=== PATIENT | female | born 1970 | race Caucasian/White ===

== ENCOUNTER 2018-12-24 08:06 | Inpatient (IN) | payer BC ==
[~2018-12-24] VITALS: Ht 172.7 cm; Wt 100.0 kg
[~2018-12-24 08:06] MED LIST: FOLI0.4T2 PO; GABA-530 PO; HYDR-4383 PO; LACT1CAP26 PO; LINE600T12 PO; MULT1TAB74 PO; NICO-687 TD; THIA100T66 PO
[2018-12-24] MEDS ORDERED: morphine 4 MG/ML inj SYRINge IV ONE (08:20)
[2018-12-24] MEDS ORDERED: ondansetron/PF 4mg/2ml inj IV ONE (08:20)
[2018-12-24] MEDS ORDERED: normal saline 1000ML IV soln IVB ONE ×2 (08:20→09:50)
[2018-12-24 09:23] LABS: BASOPHILS # (AUTO) 0.1 X10'3 (0-0.2); BASOPHILS % (AUTO) 0.7 % (0-1); EOSINOPHILS % (AUTO) 0.4 % (0-6); HEMATOCRIT 35.6 % (35.0-45.0); HEMOGLOBIN 11.8 g/dl (12.0-16.0); LYMPHOCYTES # (AUTO) 0.6 X10'3 (1.1-4.8); LYMPHOCYTES % (AUTO) 5.9 % (21-51); MEAN CORPUSCULAR HEMOGLOBIN 27.6 PG (27.0-31.0); MEAN CORPUSCULAR HGB CONC 33.1 g/dL (33.0-36.5); MEAN CORPUSCULAR VOLUME 83.5 FL (78-98); MEAN PLATELET VOLUME 8.2 FL (7.4-10.4); MONOCYTES # (AUTO) 0.2 X10'3 (0-0.9); MONOCYTES % (AUTO) 2.3 % (2-12); NEUTROPHILS # (AUTO) 9.6 X10'3 (1.8-7.7); NEUTROPHILS % (AUTO) 90.7 % (42-75); PLATELET COUNT 338 X10'3 (140-440); RED BLOOD COUNT 4.26 X10'6 (4.20-5.60); RED CELL DISTRIBUTION WIDTH 16.5 % (11.5-14.5); WHITE BLOOD COUNT 10.6 X10'3 (4.5-11.0)
[2018-12-24 09:36] LABS: CLARITY,URINE CLEAR (Clear); COLOR,URINE STRAW (Yellow); GLUCOSE, URINE NEGATIVE (Neg); KETONES,URINE NEGATIVE (Neg); LEUKOCYTE ESTERASE ,URINE TRACE (Neg); NITRITES, URINE NEGATIVE (Neg); OCCULT BLOOD,URINE NEGATIVE (Neg); PROTEIN,URINE NEGATIVE (Neg); UROBILINOGEN,URINE 0.2 E.U/dL (0.2-1.0)
[2018-12-24 09:36] LABS: ALANINE AMINOTRANSFERASE 18 U/L (12-78); ALBUMIN 2.9 G/DL (3.4-5.0); ALBUMIN/GLOBULIN RATIO 0.6 (1.1-1.5); ALKALINE PHOSPHATASE 142 IU/L (46-116); ANION GAP 10 (8-16); ASPARTATE AMINO TRANSFERASE 16 U/L (10-37); BILIRUBIN,TOTAL 0.3 MG/DL (0.1-1.0); BLOOD UREA NITROGEN 19 MG/DL (7-18); BUN/CREATININE RATIO 7.8 (6.6-38.0); CALCIUM 9.2 MG/DL (8.5-10.1); CHLORIDE 108 MMOL/L (99-107); CREATININE 2.43 MG/DL (0.40-0.90); GLUCOSE 127 MG/DL (70-104); POTASSIUM 5.1 MMOL/L (3.5-5.1); SODIUM 144 MMOL/L (135-145); TOTAL CARBON DIOXIDE 26.5 MMOL/L (24-32); TOTAL PROTEIN 7.4 G/DL (6.4-8.2); eGFR 21 ML/MIN
[2018-12-24 09:37] LABS: UA COLLECTION TYPE CLN CATCH MIDSTREAM
[2018-12-24 09:40] LABS: BACTERIA,URINE FEW /HPF (Neg); RBC,URINE NONE SEEN /HPF (0-2); SQUAMOUS EPITHELIAL CELL,UR FEW /LPF (FEW)
[2018-12-24 09:41] LABS: MUCUS STRANDS NONE SEEN /LPF (Neg); WBC CLUMPS,URINE FEW /HPF (NEGATIVE)
[2018-12-24] MEDS ORDERED: CELE200C PO (10:09)
[2018-12-24] MEDS ORDERED: potassium Cl 20 mEq SR tablet PO PRN ×2 (10:30)
[2018-12-24] MEDS ORDERED: magnesium hydroxide 30ml (MOM) UD suspension PO PRN (10:30)
[2018-12-24] MEDS ORDERED: magnesium Cl slow-release 64mg tablet PO PRN (10:30)
[2018-12-24] MEDS ORDERED: potassium CL 10mEq/100ml bag 100 ML IV PRN ×2 (10:30)
[2018-12-24] MEDS ORDERED: magnesium 2GM in 50ml NS 50 ML IV PRN (10:30)
[2018-12-24] MEDS ORDERED: acetaminophen 325mg tablet PO PRN ×2 (10:30)
[2018-12-24] MEDS ORDERED: HYDROcodone/acetaminophen 5mg/325mg tablet PO PRN (10:30)
[2018-12-24] MEDS ORDERED: magnesium 4gm in 100ml NS 100 ML IV PRN (10:30)
[2018-12-24] MEDS ORDERED: mag hydrox/Alum hydrox/simeth 30ml oral suspension PO PRN (10:30)
--- NOTE | 2018-12-24 11:20 | NUR ---
Report received from ED RNLeana.
[2018-12-24] MEDS: linezolid 600mg/300ml PREMIX 300 ML IV SCH ×2 (11:37→20:22)
[2018-12-24] MEDS: ondansetron/PF 4mg/2ml inj IV PRN ×2 (11:40→23:29)
[2018-12-24] MEDS: metoclopramide 5 mg/ml inj IV PRN ×2 (11:40→19:02)
[2018-12-24] MEDS: HYDROcodone/acetaminophen 10/325mg tab PO PRN ×2 (11:40→17:01)
[2018-12-24 12:05] VITALS: BP 169/98
[2018-12-24] MEDS: K and/or MAG REPLACEMENT MC SCH (13:00)
[2018-12-24] MEDS: normal saline 1000ml 1,000 ML IV SCH ×2 (13:00→20:27)
[2018-12-24] MEDS: HYDROmorphone 1 mg/ml syringe IV PRN ×2 (15:35→23:29)
[2018-12-24] MEDS: proCHLORperazine 10 MG/2 ml inj IV PRN (15:46)
[2018-12-24] MEDS: gabapentin 100mg capsule PO SCH (15:55)
--- NOTE | 2018-12-24 16:00 | NUR ---
Pt off the floor to CT scan
--- NOTE | 2018-12-24 16:35 | NUR ---
Pt returned to room 345A from CT
--- NOTE | 2018-12-24 18:25 | NUR ---
Problems reprioritized. Patient report given, questions answered & plan of care reviewed with JULIA Flores.
--- NOTE | 2018-12-24 18:30 | NUR ---
Patient in room PAT 345. I have received report from HALEIGH and had the opportunity to ask questions and assume patient care.
[2018-12-24 19:00] VITALS: BP 144/83
[2018-12-24] MEDS: heparin, porcine 5000 units/ml vial SQ SCH (20:23)
[2018-12-24] MEDS ORDERED: temazepam 15mg capsule PO PRN (21:00)
[2018-12-24 23:00] VITALS: BP 165/104
[2018-12-25] MEDS: normal saline 1000ml 1,000 ML IV SCH ×4 (01:51→21:53)
[2018-12-25] MEDS: HYDROcodone/acetaminophen 10/325mg tab PO PRN ×2 (02:08→08:49)
[2018-12-25 05:02] LABS: BASOPHILS # (AUTO) 0.1 X10'3 (0-0.2); BASOPHILS % (AUTO) 0.6 % (0-1); EOSINOPHILS # (AUTO) 0.3 X10'3 (0-0.9); EOSINOPHILS % (AUTO) 3.8 % (0-6); HEMATOCRIT 29.3 % (35.0-45.0); HEMOGLOBIN 9.6 g/dl (12.0-16.0); LYMPHOCYTES # (AUTO) 1.1 X10'3 (1.1-4.8); LYMPHOCYTES % (AUTO) 12.5 % (21-51); MEAN CORPUSCULAR HEMOGLOBIN 27.8 PG (27.0-31.0); MEAN CORPUSCULAR HGB CONC 32.9 g/dL (33.0-36.5); MEAN CORPUSCULAR VOLUME 84.5 FL (78-98); MEAN PLATELET VOLUME 7.9 FL (7.4-10.4); MONOCYTES # (AUTO) 0.7 X10'3 (0-0.9); MONOCYTES % (AUTO) 7.2 % (2-12); NEUTROPHILS # (AUTO) 6.9 X10'3 (1.8-7.7); NEUTROPHILS % (AUTO) 75.9 % (42-75); PLATELET COUNT 244 X10'3 (140-440); RED BLOOD COUNT 3.46 X10'6 (4.20-5.60); RED CELL DISTRIBUTION WIDTH 16.4 % (11.5-14.5); WHITE BLOOD COUNT 9.1 X10'3 (4.5-11.0)
[2018-12-25 05:06] LABS: ALANINE AMINOTRANSFERASE 19 U/L (12-78); ALBUMIN 2.3 G/DL (3.4-5.0); ALBUMIN/GLOBULIN RATIO 0.7 (1.1-1.5); ALKALINE PHOSPHATASE 111 IU/L (46-116); ANION GAP 9 (8-16); ASPARTATE AMINO TRANSFERASE 18 U/L (10-37); BILIRUBIN,TOTAL 0.4 MG/DL (0.1-1.0); BLOOD UREA NITROGEN 15 MG/DL (7-18); BUN/CREATININE RATIO 7.5 (6.6-38.0); CALCIUM 8.4 MG/DL (8.5-10.1); CHLORIDE 108 MMOL/L (99-107); GLUCOSE 92 MG/DL (70-104); MAGNESIUM 1.7 MG/DL (1.5-2.4); POTASSIUM 4.5 MMOL/L (3.5-5.1); SODIUM 141 MMOL/L (135-145); TOTAL CARBON DIOXIDE 24.4 MMOL/L (24-32); TOTAL PROTEIN 5.7 G/DL (6.4-8.2); eGFR 27 ML/MIN
--- NOTE | 2018-12-25 06:05 | NUR ---
Patient in room PAT 345. I have received report from JULIA Thacker and had the opportunity to ask questions and assume patient care.
--- NOTE | 2018-12-25 06:28 | NUR ---
Problems reprioritized. Patient report given, questions answered & plan of care reviewed with URBAN.
[2018-12-25 07:20] VITALS: BP 152/96
[2018-12-25] MEDS: heparin, porcine 5000 units/ml vial SQ SCH ×2 (08:00→20:18)
[2018-12-25] MEDS: gabapentin 100mg capsule PO SCH ×4 (08:00→23:45)
[2018-12-25] MEDS: linezolid 600mg/300ml PREMIX 300 ML IV SCH (08:00)
[2018-12-25] MEDS: K and/or MAG REPLACEMENT MC SCH (08:00)
[2018-12-25] MEDS: ondansetron/PF 4mg/2ml inj IV PRN (11:12)
[2018-12-25 11:24] VITALS: BP 133/86
[2018-12-25] MEDS: HYDROmorphone 1 mg/ml syringe IV PRN (13:05)
--- NOTE | 2018-12-25 14:12 | NUR ---
zyvox trigger: Pt recent prior admit and received zyvox ed by JOHN at that time. Addendum: 12/25/18 at [address] Amended: Links added.
[2018-12-25] MEDS: proCHLORperazine 10 MG/2 ml inj IV PRN (14:37)
[2018-12-25] MEDS: LORazepam 1 MG tablet PO PRN (17:28)
--- NOTE | 2018-12-25 18:05 | NUR ---
Problems reprioritized. Patient report given, questions answered & plan of care reviewed with JULIA Barker. Addendum: 12/25/18 at 1834 by Ana Pham RN 1814: Report given to JULIA Osullivan not JULIA Barker.
[2018-12-25 19:00] VITALS: BP 145/88
[2018-12-25] MEDS ORDERED: linezolid 600mg tablet PO SCH (20:00)
[2018-12-25] MEDS: lactobacillus rhamnosus 10,000 MMU CELLS/CAPSULE PO SCH (20:18)
[2018-12-25] MEDS ORDERED: HYDROmorphone inj. 0.5 MG/0.5 ML DISP.SYRIN ONE (20:26)
[2018-12-26] VITALS: BP 148/90
[2018-12-26] MEDS: ondansetron/PF 4mg/2ml inj IV PRN (01:55)
[2018-12-26 04:44] LABS: BASOPHILS % (AUTO) 0.8 % (0-1); EOSINOPHILS # (AUTO) 0.3 X10'3 (0-0.9); EOSINOPHILS % (AUTO) 4.5 % (0-6); HEMATOCRIT 27.8 % (35.0-45.0); HEMOGLOBIN 9.3 g/dl (12.0-16.0); LYMPHOCYTES % (AUTO) 16.8 % (21-51); MEAN CORPUSCULAR HGB CONC 33.2 g/dL (33.0-36.5); MEAN CORPUSCULAR VOLUME 84.1 FL (78-98); MEAN PLATELET VOLUME 7.8 FL (7.4-10.4); MONOCYTES # (AUTO) 0.5 X10'3 (0-0.9); MONOCYTES % (AUTO) 8.1 % (2-12); NEUTROPHILS # (AUTO) 4.3 X10'3 (1.8-7.7); NEUTROPHILS % (AUTO) 69.8 % (42-75); PLATELET COUNT 189 X10'3 (140-440); RED BLOOD COUNT 3.31 X10'6 (4.20-5.60); RED CELL DISTRIBUTION WIDTH 16.2 % (11.5-14.5); WHITE BLOOD COUNT 6.2 X10'3 (4.5-11.0)
[2018-12-26 05:02] LABS: ALANINE AMINOTRANSFERASE 22 U/L (12-78); ALBUMIN 2.4 G/DL (3.4-5.0); ALBUMIN/GLOBULIN RATIO 0.7 (1.1-1.5); ALKALINE PHOSPHATASE 114 IU/L (46-116); ANION GAP 8 (8-16); ASPARTATE AMINO TRANSFERASE 24 U/L (10-37); BILIRUBIN,TOTAL 0.3 MG/DL (0.1-1.0); BLOOD UREA NITROGEN 14 MG/DL (7-18); BUN/CREATININE RATIO 7.7 (6.6-38.0); CALCIUM 8.3 MG/DL (8.5-10.1); CHLORIDE 110 MMOL/L (99-107); CREATININE 1.83 MG/DL (0.40-0.90); GLUCOSE 82 MG/DL (70-104); MAGNESIUM 1.6 MG/DL (1.5-2.4); POTASSIUM 4.1 MMOL/L (3.5-5.1); SODIUM 143 MMOL/L (135-145); TOTAL CARBON DIOXIDE 25.3 MMOL/L (24-32); TOTAL PROTEIN 5.8 G/DL (6.4-8.2); eGFR 30 ML/MIN
[2018-12-26 06:00] VITALS: BP 143/81
--- NOTE | 2018-12-26 06:42 | NUR ---
Problems reprioritized. Patient report given, questions answered & plan of care reviewed with DESEAN. Addendum: 12/26/18 at 0643 by Nader Ghosh RN Amended: Links added.
[2018-12-26] MEDS ORDERED: HYDROmorphone inj. 0.5 MG/0.5 ML DISP.SYRIN ONE (06:59)
[2018-12-26] MEDS: gabapentin 100mg capsule PO SCH ×3 (07:09→23:41)
[2018-12-26] MEDS: proCHLORperazine 10 MG/2 ml inj IV PRN ×3 (07:09→21:00)
[2018-12-26] MEDS: lactobacillus rhamnosus 10,000 MMU CELLS/CAPSULE PO SCH ×2 (07:09→21:22)
[2018-12-26] MEDS: heparin, porcine 5000 units/ml vial SQ SCH ×2 (07:10→21:23)
[2018-12-26] MEDS: K and/or MAG REPLACEMENT MC SCH (07:38)
[2018-12-26 11:00] VITALS: BP 126/81
[2018-12-26] MEDS: LORazepam 1 MG tablet PO PRN ×2 (11:44→21:22)
[2018-12-26] MEDS: normal saline 1000ml 1,000 ML IV SCH ×2 (12:27→22:27)
[2018-12-26] MEDS: nystatin 15 GM powder TP SCH ×2 (13:16→21:23)
--- NOTE | 2018-12-26 14:23 | NUR ---
Initial: Pt admit with LUCERO secondary to N/V, likely r/t reaction to Zyvox. N/V and LUCERO improving per MD notes. Pt recently admitted 12/07/18 and underwent a colectomy with sigmoid resection with primary anastomosis and takedown of colovaginal fistula. Pt was provided with low fiber education and low tyramine nutrition therapy education d/t use of Zyvox. RD contact information also provided at that visit. Pt currently on low fiber/soft diet with documented 75% PO intake likely meeting nutrient needs. [facility] 12/24. Will continue to follow. Recommendations: 1) Continue with low fiber/soft diet 2) Wt per rx Addendum: 12/26/18 at [address] Amended: Links added.
[2018-12-26] MEDS: HYDROmorphone 1 mg/ml syringe IV PRN (17:14)
--- NOTE | 2018-12-26 18:26 | NUR ---
Problems reprioritized. Patient report given, questions answered & plan of care reviewed with JULIA Martinez.
--- NOTE | 2018-12-26 18:27 | NUR ---
Patient in room PAT 345. I have received report from JULIA Brand and had the opportunity to ask questions and assume patient care.
[2018-12-26 20:00] VITALS: BP 153/95
[2018-12-26] MEDS ORDERED: [UNRECOGNIZED DRUG - OTHER] VG SCH (21:00)
[2018-12-27] VITALS: BP 143/74
[2018-12-27] MEDS: normal saline 1000ml 1,000 ML IV SCH (04:56)
[2018-12-27 04:58] LABS: BASOPHILS # (AUTO) 0.1 X10'3 (0-0.2); BASOPHILS % (AUTO) 0.9 % (0-1); EOSINOPHILS # (AUTO) 0.2 X10'3 (0-0.9); EOSINOPHILS % (AUTO) 3.3 % (0-6); HEMATOCRIT 27.5 % (35.0-45.0); HEMOGLOBIN 9.2 g/dl (12.0-16.0); LYMPHOCYTES % (AUTO) 14.7 % (21-51); MEAN CORPUSCULAR HEMOGLOBIN 28.1 PG (27.0-31.0); MEAN CORPUSCULAR HGB CONC 33.4 g/dL (33.0-36.5); MEAN CORPUSCULAR VOLUME 84.2 FL (78-98); MONOCYTES # (AUTO) 0.7 X10'3 (0-0.9); MONOCYTES % (AUTO) 10.6 % (2-12); NEUTROPHILS # (AUTO) 4.8 X10'3 (1.8-7.7); NEUTROPHILS % (AUTO) 70.5 % (42-75); PLATELET COUNT 162 X10'3 (140-440); RED BLOOD COUNT 3.26 X10'6 (4.20-5.60); RED CELL DISTRIBUTION WIDTH 16.3 % (11.5-14.5); WHITE BLOOD COUNT 6.7 X10'3 (4.5-11.0)
[2018-12-27 05:33] LABS: ALANINE AMINOTRANSFERASE 19 U/L (12-78); ALBUMIN 2.6 G/DL (3.4-5.0); ALBUMIN/GLOBULIN RATIO 0.8 (1.1-1.5); ALKALINE PHOSPHATASE 116 IU/L (46-116); ANION GAP 11 (8-16); ASPARTATE AMINO TRANSFERASE 19 U/L (10-37); BILIRUBIN,TOTAL 0.3 MG/DL (0.1-1.0); BLOOD UREA NITROGEN 13 MG/DL (7-18); BUN/CREATININE RATIO 8.2 (6.6-38.0); CALCIUM 8.6 MG/DL (8.5-10.1); CHLORIDE 110 MMOL/L (99-107); CREATININE 1.58 MG/DL (0.40-0.90); GLUCOSE 88 MG/DL (70-104); MAGNESIUM 1.6 MG/DL (1.5-2.4); SODIUM 146 MMOL/L (135-145); TOTAL CARBON DIOXIDE 25.1 MMOL/L (24-32); eGFR 35 ML/MIN
--- NOTE | 2018-12-27 06:07 | NUR ---
Problems reprioritized. Patient report given, questions answered & plan of care reviewed with JULIA Goyal.
[2018-12-27 07:00] VITALS: BP 161/106
[2018-12-27] MEDS: HYDROcodone/acetaminophen 10/325mg tab PO PRN (07:25)
[2018-12-27] MEDS: heparin, porcine 5000 units/ml vial SQ SCH (07:43)
[2018-12-27] MEDS: K and/or MAG REPLACEMENT MC SCH (07:43)
[2018-12-27] MEDS: lactobacillus rhamnosus 10,000 MMU CELLS/CAPSULE PO SCH (07:45)
[2018-12-27] MEDS: proCHLORperazine 10 MG/2 ml inj IV PRN (07:45)
[2018-12-27] MEDS: nystatin 15 GM powder TP SCH ×2 (07:45→13:00)
[2018-12-27] MEDS: gabapentin 100mg capsule PO SCH (07:45)
[2018-12-27 08:03] VITALS: BP 156/94
[2018-12-27 08:41] VITALS: BP 141/83
[2018-12-27 11:00] VITALS: BP 151/87
[2018-12-27] MEDS: LORazepam 1 MG tablet PO PRN (11:45)
[2018-12-27] MEDS ORDERED: LINE600T11 PO (12:39)
--- NOTE | 2018-12-27 14:25 | NUR ---
Pt. discharged in a stable condition. Aware to return to ER if any worsening symptoms. Aware to follow up to have jessica removed. Knows to case picker Zyvox at pharmacy. IV dc'd, pressure bandage applied, no s/sx bleeding noted. Wound care discussed for incision. Infection control discussed with good feedback. Potential ASE of Zyvox discussed with pt. Educational papers also provided. ID band removed. present to drive pt. Hospital staff member escorted pt. to her private vehicle with all of her belongings to go home.
== END 2018-12-27 14:27 | disposition home or self-care (01) | DRG 684 ==
LOC: ER 08:07 → SUR 3N 10:27 → INTOOBSV 12:02 → SUR 3N 12:02 → OBSVTOIN 12:02 → UNDOADMOB 12:02 → SUR 3N 13:55
PROVIDERS: ADMIT Family Medicine; ATTEND Family Medicine
DX: N17.9 Acute kidney failure, unspecified (principal); E78.5 Hyperlipidemia, unspecified; E86.0 Dehydration; F41.1 Generalized anxiety disorder; I10 Essential (primary) hypertension; J45.909 Unspecified asthma, uncomplicated; D25.9 Leiomyoma of uterus, unspecified; K57.90 Diverticulosis of intestine, part unspecified, without perforation or abscess without bleeding; F12.90 Cannabis use, unspecified, uncomplicated; F32.9 Major depressive disorder, single episode, unspecified; T36.8X5A Adverse effect of other systemic antibiotics, initial encounter; L40.50 Arthropathic psoriasis, unspecified; F17.200 Nicotine dependence, unspecified, uncomplicated; Z90.49 Acquired absence of other specified parts of digestive tract; Z87.11 Personal history of peptic ulcer disease; Z90.710 Acquired absence of both cervix and uterus; Z88.0 Allergy status to penicillin; Z88.2 Allergy status to sulfonamides; Z88.5 Allergy status to narcotic agent; Y92.89 Other specified places as the place of occurrence of the external cause
CPT/HCPCS: 36415; 74176; 80053; 81001; 83605; 83735; 84145; 85025; 87040; 87081; 87088; 93975; 96361; 96374; 96375; 99285; G0378; J0780; J1170; J1644; J2020; J2270; J2405; J2765; J7030

== ENCOUNTER 2019-07-02 10:24 | Emergency (ER) | payer BC ==
[~2019-07-02] VITALS: Ht 170.2 cm; Wt 90.0 kg
[~2019-07-02 10:24] MED LIST changes: +CELE200C PO; -FOLI0.4T2 PO; -HYDR-4383 PO; -LINE600T12 PO; -NICO-687 TD; -THIA100T66 PO
[2019-07-02] MEDS ORDERED: diphenhydrAMINE 25mg capsule PO ONE (12:10)
[2019-07-02] MEDS ORDERED: ondansetron 4mg rapidly disintigrating tab PO ONE (12:10)
[2019-07-02] MEDS ORDERED: HYDROcodone/acetaminophen 5mg/325mg tablet PO ONE (12:10)
[2019-07-02 12:35] LABS: BASOPHILS # (AUTO) 0.1 X10'3 (0-0.2); BASOPHILS % (AUTO) 1.1 % (0-1); EOSINOPHILS # (AUTO) 0.1 X10'3 (0-0.9); EOSINOPHILS % (AUTO) 1.1 % (0-6); HEMOGLOBIN 15.7 g/dl (12.0-16.0); LYMPHOCYTES # (AUTO) 1.5 X10'3 (1.1-4.8); LYMPHOCYTES % (AUTO) 18.5 % (21-51); MEAN CORPUSCULAR HEMOGLOBIN 30.1 PG (27.0-31.0); MEAN CORPUSCULAR HGB CONC 34.1 g/dL (33.0-36.5); MEAN CORPUSCULAR VOLUME 88.1 FL (78-98); MEAN PLATELET VOLUME 9.8 FL (7.4-10.4); MONOCYTES # (AUTO) 0.7 X10'3 (0-0.9); MONOCYTES % (AUTO) 8.5 % (2-12); NEUTROPHILS # (AUTO) 5.7 X10'3 (1.8-7.7); NEUTROPHILS % (AUTO) 70.8 % (42-75); PLATELET COUNT 224 X10'3 (140-440); RED BLOOD COUNT 5.22 X10'6 (4.20-5.60); RED CELL DISTRIBUTION WIDTH 14.4 % (11.5-14.5)
[2019-07-02 12:59] LABS: ALANINE AMINOTRANSFERASE 36 U/L (12-78); ALBUMIN 3.8 G/DL (3.4-5.0); ALKALINE PHOSPHATASE 229 IU/L (46-116); ANION GAP 7 (8-16); ASPARTATE AMINO TRANSFERASE 25 U/L (10-37); BILIRUBIN,TOTAL 0.3 MG/DL (0.1-1.0); BLOOD UREA NITROGEN 17 MG/DL (7-18); CALCIUM 9.6 MG/DL (8.5-10.1); CHLORIDE 105 MMOL/L (99-107); CREATININE 0.74 MG/DL (0.40-0.90); GLUCOSE 94 MG/DL (70-104); LIPASE 134 U/L (73-393); POTASSIUM 4.5 MMOL/L (3.5-5.1); SODIUM 139 MMOL/L (135-145); TOTAL CARBON DIOXIDE 26.6 MMOL/L (24-32); TOTAL PROTEIN 7.6 G/DL (6.4-8.2); eGFR 84 ML/MIN
[2019-07-02 13:10] VITALS: BP 159/97
[2019-07-02] MEDS ORDERED: ONDA4TAB6 PO (13:48)
[2019-07-02] MEDS ORDERED: HYDR-4353 PO (13:48)
[2019-07-02 13:53] LABS: CLARITY,URINE CLEAR (Clear); COLOR,URINE STRAW (Yellow); GLUCOSE, URINE NEGATIVE (Neg); KETONES,URINE NEGATIVE (Neg); LEUKOCYTE ESTERASE ,URINE NEGATIVE (Neg); NITRITES, URINE NEGATIVE (Neg); OCCULT BLOOD,URINE NEGATIVE (Neg); PH,URINE 5.5 (4.8-8.0); PROTEIN,URINE NEGATIVE (Neg); UROBILINOGEN,URINE 0.2 E.U/dL (0.2-1.0)
[2019-07-02 13:54] LABS: UA COLLECTION TYPE CLN CATCH MIDSTREAM
== END 2019-07-02 14:13 | disposition home or self-care (01) ==
LOC: ER 10:25
DX: K42.9 Umbilical hernia without obstruction or gangrene (principal); M19.90 Unspecified osteoarthritis, unspecified site; F17.200 Nicotine dependence, unspecified, uncomplicated; F10.99 Alcohol use, unspecified with unspecified alcohol-induced disorder; F12.90 Cannabis use, unspecified, uncomplicated; Z90.89 Acquired absence of other organs; Z90.710 Acquired absence of both cervix and uterus; Z90.49 Acquired absence of other specified parts of digestive tract; Z88.0 Allergy status to penicillin; Z88.2 Allergy status to sulfonamides; Z88.5 Allergy status to narcotic agent; Z88.8 Allergy status to other drugs, medicaments and biological substances; Z79.899 Other long term (current) drug therapy; Y90.9 Presence of alcohol in blood, level not specified
CPT/HCPCS: 36415; 74176; 80053; 81003; 83690; 85025; 99284; Q0163

== ENCOUNTER 2019-07-10 04:59 | Inpatient (IN) | payer BC ==
[2019-07-06 11:44] LABS: BASOPHILS % (AUTO) 0.6 % (0-1); EOSINOPHILS # (AUTO) 0.1 X10'3 (0-0.9); EOSINOPHILS % (AUTO) 1.2 % (0-6); LYMPHOCYTES # (AUTO) 1.2 X10'3 (1.1-4.8); LYMPHOCYTES % (AUTO) 17.9 % (21-51); MEAN CORPUSCULAR HEMOGLOBIN 30.2 PG (27.0-31.0); MEAN CORPUSCULAR VOLUME 89.1 FL (78-98); MONOCYTES # (AUTO) 0.5 X10'3 (0-0.9); MONOCYTES % (AUTO) 7.8 % (2-12); NEUTROPHILS # (AUTO) 4.7 X10'3 (1.8-7.7); NEUTROPHILS % (AUTO) 72.5 % (42-75); PRE OP HEMATOCRIT 44.1 % (35.0-45.0); PRE OP PLATELET COUNT 222 X10'3 (140-440); RED BLOOD COUNT 4.96 X10'6 (4.20-5.60); RED CELL DISTRIBUTION WIDTH 14.6 % (11.5-14.5)
[2019-07-06 11:45] LABS: CLARITY,URINE CLEAR (Clear); COLOR,URINE STRAW (Yellow); GLUCOSE, URINE NEGATIVE (Neg); KETONES,URINE NEGATIVE (Neg); LEUKOCYTE ESTERASE ,URINE NEGATIVE (Neg); NITRITES, URINE NEGATIVE (Neg); OCCULT BLOOD,URINE NEGATIVE (Neg); PROTEIN,URINE NEGATIVE (Neg); UA COLLECTION TYPE CLN CATCH MIDSTREAM; UROBILINOGEN,URINE 0.2 E.U/dL (0.2-1.0)
[2019-07-06 11:55] LABS: ALBUMIN 3.7 G/DL (3.4-5.0); ALKALINE PHOSPHATASE 219 IU/L (46-116); BLOOD UREA NITROGEN 15 MG/DL (7-18); BUN/CREATININE RATIO 18.8 (6.6-38.0); CALCIUM 9.5 MG/DL (8.5-10.1); CHLORIDE 106 MMOL/L (99-107); PRE OP ALT 33 U/L (30-65); PRE OP ANION GAP 10 (8-16); PRE OP AST 19 U/L (10-37); PRE OP BILIRUB, TOTAL 0.3 MG/DL (0.0-1.0); PRE OP GLUCOSE 103 MG/DL (70-104); PRE OP POTASSIUM 4.5 MMOL/L (3.4-5.1); PRE OP SODIUM 140 MMOL/L (135-145); TOTAL CARBON DIOXIDE 23.9 MMOL/L (24-32); TOTAL PROTEIN 7.5 G/DL (6.4-8.2); eGFR 77 ML/MIN
[2019-07-06 11:58] LABS: PRE OP PARTIAL THROMB. TIME 26 SECONDS (22-32); PRE OP PROTIME 9.3 SECONDS (9.0-12.0)
[2019-07-06 11:59] LABS: PRE OP INR < 0.9 INR
[~2019-07-10] VITALS: Ht 170.2 cm; Wt 94.0 kg
[2019-07-10] VITALS (16 sets, daily range): BP systolic 122–171; BP diastolic 77–108
[~2019-07-10 04:59] MED LIST changes: +HYDR-3973 PO; +KEN0.1O TP; -LACT1CAP26 PO; -MULT1TAB74 PO; +ONDA4TAB6 PO; +SECU150S IM; +TURM500C4 PO
[2019-07-10] MEDS ORDERED: ringers solution, lacted 1,000 ML IV SCH ×2 (05:00→08:55)
[2019-07-10] MEDS ORDERED: famotidine 20mg tablet PO ONE (05:30)
[2019-07-10] MEDS ORDERED: clindamycin-Cleocin 900mg/D5W 50 ML IV ONE (05:30)
[2019-07-10] MEDS ORDERED: LIDOcaine 1% (10mg/ml) 2ml vial ONE (06:16)
[2019-07-10] MEDS ORDERED: diazepam 5mg tablet PO ONE (07:55)
[2019-07-10] MEDS ORDERED: BUPIVAcaine/PF 2.5 mg/ml (0.25%) 30ml vial ONE (08:49)
[2019-07-10] MEDS ORDERED: ceFAZolin 1000mg inj ONE (08:49)
[2019-07-10] MEDS ORDERED: proCHLORperazine 10 MG/2 ml inj IV PRN (08:55)
[2019-07-10] MEDS ORDERED: morphine 4 MG/ML inj SYRINge IV PRN ×2 (08:55)
[2019-07-10] MEDS ORDERED: ondansetron/PF 4mg/2ml inj IV PRN (08:55)
[2019-07-10] MEDS ORDERED: meperidine/PF 25mg/ml syringe IV PRN ×2 (08:55)
[2019-07-10] MEDS ORDERED: sevoflurane 250ml liquid IH ONE (08:58)
[2019-07-10] MEDS ORDERED: glycopyrrolate 0.2mg/ml inj ONE (08:58)
[2019-07-10] MEDS ORDERED: ondansetron/PF 4mg/2ml inj ONE (08:58)
[2019-07-10] MEDS ORDERED: neostigmine methylsulfate 1 MG/ML 10ml vial ONE (08:58)
[2019-07-10] MEDS ORDERED: midazolam 2 mg/2 ml injection ONE (09:04)
[2019-07-10] MEDS ORDERED: LIDOcaine 2% (20mg/ml) 5ml vial ONE (09:05)
[2019-07-10] MEDS ORDERED: fentaNYL /PF 50mcg/ml 5ml ampule ONE (09:05)
[2019-07-10] MEDS ORDERED: propofol inj 20 ML IV ONE (10:21)
[2019-07-10] MEDS ORDERED: acetaminophen 1,000mg/100ml IV 100 ML IV ONE (10:21)
[2019-07-10] MEDS ORDERED: dexamethasone sod phosphate 4mg/ml inj. ONE (10:37)
[2019-07-10] MEDS ORDERED: rocuronium 10mg/ml inj IV ONE (10:37)
[2019-07-10] MEDS ORDERED: ketorolac trometh. 30mg/ml inj. ONE (10:38)
--- NOTE | 2019-07-10 10:48 | NUR ---
Received from OR via , accompanied by Anesthesiologist DR HARPER and report given by Anesthesiolgist. AWAKENS TO VOCE. VITALS STABLE. DRESSINGS DI. [place] PAIN. ABD BINDER IN PLACE.
[2019-07-10] MEDS ORDERED: LORazepam 2 mg/ml vial IV ONE (10:55)
[2019-07-10] MEDS: meperidine/PF 25mg/ml syringe IV PRN ×2 (11:13→11:45)
--- NOTE | 2019-07-10 11:48 | NUR ---
Report called to receiving nurse. Transferred via BED Belongings . Special Issues communicated to receiving nurse. AWAKE AND ORIENTED. VITALS STABLE. DRESSINGS DI. STATES PAIN IMPROVING. TO SURGICAL RM 350B AT THIS TIME.
[2019-07-10] MEDS ORDERED: GABA-530 PO (12:47)
[2019-07-10] MEDS ORDERED: ONDA-103 PO (12:49)
[2019-07-10] MEDS: HYDROmorphone inj. 0.5 MG/0.5 ML DISP.SYRIN IV PRN ×3 (14:00→23:10)
[2019-07-10] MEDS: clindamycin 600mg/D5W 50ml 50 ML IV SCH ×2 (14:53→19:51)
[2019-07-10] MEDS: potassium CL 20mEq in D5-1/2NS 1,000 ML IV SCH ×2 (18:45→18:49)
[2019-07-10] MEDS: nicotine 21mg patch - 24 hr TD SCH (20:34)
[2019-07-11] VITALS: BP 142/92
[2019-07-11] MEDS: clindamycin 600mg/D5W 50ml 50 ML IV SCH ×4 (03:51→19:57)
[2019-07-11] MEDS: potassium CL 20mEq in D5-1/2NS 1,000 ML IV SCH ×3 (03:51→22:42)
[2019-07-11] MEDS: HYDROmorphone inj. 0.5 MG/0.5 ML DISP.SYRIN IV PRN ×4 (03:55→18:14)
--- NOTE | 2019-07-11 06:30 | NUR ---
Patient in room PAT 354. I have received report from MCKINLEY DUMONT and had the opportunity to ask questions and assume patient care.
--- NOTE | 2019-07-11 06:56 | NUR ---
Problems reprioritized. Patient report given, questions answered & plan of care reviewed with TERESITA. Addendum: 07/11/19 at 0656 by Nader Ghosh RN Amended: Links added.
[2019-07-11 07:06] VITALS: BP 118/76
[2019-07-11 11:00] VITALS: BP 132/84
[2019-07-11] MEDS: HYDROcodone/acetaminophen 10/325mg tab PO PRN ×2 (11:11→21:09)
[2019-07-11] MEDS ORDERED: ondansetron 4mg rapidly disintigrating tab PO PRN (15:40)
[2019-07-11] MEDS ORDERED: metoclopramide 5 mg/ml inj IV PRN (15:40)
[2019-07-11] MEDS ORDERED: HYDROcodone/acetaminophen 10/325mg tab PO PRN (15:40)
[2019-07-11] MEDS ORDERED: SECUKINUMAB SQ SCH (16:00)
[2019-07-11 18:00] VITALS: BP 126/77
--- NOTE | 2019-07-11 18:20 | NUR ---
Patient in room PAT 354. I have received report from Marek DUMONT and had the opportunity to ask questions and assume patient care.
--- NOTE | 2019-07-11 18:30 | NUR ---
Problems reprioritized. Patient report given, questions answered & plan of care reviewed with Sarai DUMONT.
[2019-07-11] MEDS: celeCOXIB 100mg capsule PO SCH (19:56)
[2019-07-11] MEDS: metoclopramide 5 mg/ml inj IV SCH (19:56)
[2019-07-11] MEDS: lactobacillus rhamnosus 10,000 MMU CELLS/CAPSULE PO SCH (19:57)
[2019-07-11] MEDS: gabapentin 100mg capsule PO SCH (21:07)
[2019-07-11] MEDS: nicotine 21mg patch - 24 hr TD SCH (21:26)
[2019-07-12] VITALS: BP 108/68
[2019-07-12] MEDS: clindamycin 600mg/D5W 50ml 50 ML IV SCH ×3 (01:31→13:12)
[2019-07-12] MEDS: metoclopramide 5 mg/ml inj IV SCH ×3 (01:32→13:11)
[2019-07-12] MEDS: HYDROcodone/acetaminophen 10/325mg tab PO PRN ×2 (05:20→13:11)
--- NOTE | 2019-07-12 06:16 | NUR ---
Problems reprioritized. Patient report given, questions answered & plan of care reviewed with Amrek RN.
[2019-07-12] MEDS: potassium CL 20mEq in D5-1/2NS 1,000 ML IV SCH ×2 (06:43→11:08)
[2019-07-12 08:00] VITALS: BP 105/63
[2019-07-12] MEDS: HYDROmorphone inj. 0.5 MG/0.5 ML DISP.SYRIN IV PRN ×2 (08:07→15:52)
[2019-07-12] MEDS: nicotine 21mg patch - 24 hr TD SCH (08:08)
[2019-07-12] MEDS: celeCOXIB 100mg capsule PO SCH (08:10)
[2019-07-12] MEDS: gabapentin 100mg capsule PO SCH ×2 (08:10→13:12)
[2019-07-12] MEDS: lactobacillus rhamnosus 10,000 MMU CELLS/CAPSULE PO SCH (08:10)
[2019-07-12 12:00] VITALS: BP 112/78
[2019-07-12] MEDS ORDERED: HYDR-4353 PO (17:49)
[2019-07-12] MEDS ORDERED: HYDR-3973 PO (17:49)
--- NOTE | 2019-07-12 18:20 | NUR ---
Patient discharged into the care of her family,n Patient had new Rx given to her a discharge and understands follow up time frames and medication usage. Patients IV taken out by resource nurse and patient expressed verbal understanding of all discharge teaching.
[2019-07-12] MEDS ORDERED: nicotine 21mg patch - 24 hr TD SCH (21:00)
== END 2019-07-12 18:36 | disposition home or self-care (01) | DRG 336 ==
LOC: PAS IN 04:59 → EDSTATUS 07:30 → SUR 3N 16:52
PROVIDERS: ADMIT Surgery; ATTEND Surgery
PROC: 0DNW4ZZ Release Peritoneum, Percutaneous Endoscopic Approach (ICD-10-PCS; 2019-07-10)
PROC: 0WUF4JZ Supplement Abdominal Wall with Synthetic Substitute, Percutaneous Endoscopic Approach (ICD-10-PCS; principal; 2019-07-10 08:58)
DX: K43.9 Ventral hernia without obstruction or gangrene (principal); K56.7 Ileus, unspecified; K66.0 Peritoneal adhesions (postprocedural) (postinfection); J45.909 Unspecified asthma, uncomplicated
CPT/HCPCS: Z7506; Z7508; 36415; 71046; 80053; 81003; 82948; 85025; 85610; 85730; 86885; 86900; 86901; 93005; A4215; A4618; A7000; C1758; C1781; G0378; J0131; J0690; J1100; J1170; J1885; J2001; J2060; J2175; J2250; J2405; J2704; J2710; J2765; J3010; J3480; J3490; J7120

== ENCOUNTER 2020-09-18 00:28 | Emergency (ER) | payer BC, MEDICARE ==
[~2020-09-18] VITALS: Ht 172.7 cm; Wt 90.9 kg
[2020-09-18] VITALS (15 sets, daily range): BP systolic 121–161; BP diastolic 76–100
[~2020-09-18 00:28] MED LIST changes: +HYDR-4353 PO; +ONDA-103 PO; -ONDA4TAB6 PO
[2020-09-18] MEDS ORDERED: aspirin 81mg tab.chew PO ONE (00:40)
[2020-09-18] MEDS: nitroGLYCERIN 0.4mg SUBLingual tab SL PRN ×3 (00:54→01:23)
[2020-09-18] MEDS ORDERED: aspirin 81mg tab.chew ONE (00:59)
[2020-09-18 01:17] LABS: EOSINOPHILS # (AUTO) 0.1 X10'3 (0-0.9); MEAN CORPUSCULAR HEMOGLOBIN 30.6 PG (27.0-31.0)
[2020-09-18 01:18] LABS: BASOPHILS # (AUTO) 0.1 X10'3 (0-0.2); BASOPHILS % (AUTO) 0.8 % (0-1); EOSINOPHILS % (AUTO) 1.4 % (0-6); HEMATOCRIT 40.7 % (35.0-45.0); HEMOGLOBIN 13.8 g/dl (12.0-16.0); LYMPHOCYTES # (AUTO) 1.6 X10'3 (1.1-4.8); LYMPHOCYTES % (AUTO) 16.6 % (21-51); MEAN CORPUSCULAR HGB CONC 33.9 g/dL (33.0-36.5); MEAN CORPUSCULAR VOLUME 90.4 FL (78-98); MONOCYTES # (AUTO) 0.8 X10'3 (0-0.9); MONOCYTES % (AUTO) 7.9 % (2-12); NEUTROPHILS % (AUTO) 73.3 % (42-75); PLATELET COUNT 209 X10'3 (140-440); RED CELL DISTRIBUTION WIDTH 14.8 % (11.5-14.5); WHITE BLOOD COUNT 9.5 X10'3 (4.5-11.0)
[2020-09-18 01:33] LABS: ALANINE AMINOTRANSFERASE 35 U/L (12-78); ALBUMIN 3.7 G/DL (3.4-5.0); ALKALINE PHOSPHATASE 185 IU/L (46-116); BILIRUBIN,TOTAL 0.2 MG/DL (0.1-1.0); BLOOD UREA NITROGEN 25 MG/DL (7-18); BUN/CREATININE RATIO 30.5 (6.6-38.0); CALCIUM 8.8 MG/DL (8.5-10.1); CREATININE 0.82 MG/DL (0.40-0.90); GLUCOSE 116 MG/DL (70-104); SODIUM 143 MMOL/L (135-145); TOTAL CARBON DIOXIDE 22.8 MMOL/L (24-32); TOTAL PROTEIN 7.3 G/DL (6.4-8.2); eGFR 74 ML/MIN
[2020-09-18 02:01] LABS: ASPARTATE AMINO TRANSFERASE 36 U/L (10-37)
[2020-09-18 02:03] LABS: ANION GAP 12 (8-16); CHLORIDE 108 MMOL/L (99-107)
[2020-09-18 02:04] LABS: POTASSIUM 4.3 MMOL/L (3.5-5.1)
[2020-09-18] MEDS ORDERED: potassium Cl 20 mEq SR tablet PO PRN ×2 (04:00)
[2020-09-18] MEDS ORDERED: potassium Cl 40MEQ/1/2NS 520ml 520 ML IV PRN ×2 (04:00)
[2020-09-18] MEDS ORDERED: regadenoson 0.4mg/5ml syringe IV PRN (04:00)
[2020-09-18] MEDS ORDERED: metoprolol tartrate 1mg/ml inj IV PRN (04:00)
[2020-09-18] MEDS ORDERED: magnesium Cl slow-release 64mg tablet PO PRN (04:00)
[2020-09-18] MEDS ORDERED: ondansetron/PF 4mg/2ml inj IV PRN (04:00)
[2020-09-18] MEDS ORDERED: magnesium 2GM in 50ml NS 50 ML IV PRN (04:00)
[2020-09-18] MEDS ORDERED: aminophylline 250mg/10ml inj. IV PRN (04:00)
[2020-09-18] MEDS ORDERED: nitroGLYCERIN 0.4mg SUBLingual tab SL PRN (04:00)
[2020-09-18] MEDS ORDERED: magnesium 4gm in 100ml NS 100 ML IV PRN (04:00)
[2020-09-18 04:07] LABS: CHOLESTEROL 329 MG/DL (0-200); HDL CHOLESTEROL 47 MG/DL (35-60); LDL CHOLESTEROL 128 MG/DL (50-100); TRIGLYCERIDES 299 MG/DL (20-135)
[2020-09-18] MEDS ORDERED: HYDROcodone/acetaminophen 10/325mg tab PO PRN (04:40)
--- NOTE | 2020-09-18 05:04 | NUR ---
Patient reported she is anxious and wanting to go outside to smoke, spoke to Dr. Calvillo about nicotine patch, stated he will place order. Patient reports smoking 1 pack/day.
[2020-09-18] MEDS ORDERED: nicotine 21mg patch - 24 hr TD ONE (05:05)
[2020-09-18] MEDS: gabapentin 100mg capsule PO SCH ×2 (08:00→12:07)
[2020-09-18] MEDS ORDERED: K and/or MAG REPLACEMENT MC SCH (08:00)
[2020-09-18] MEDS: celeCOXIB 100mg capsule PO SCH ×2 (08:00→12:06)
--- NOTE | 2020-09-18 09:22 | NUR ---
PT TO [facility] FOR STRESS TEST. PT WILL GO TO SHORT STAY AFTER
[2020-09-18] MEDS ORDERED: atorvastatin 20mg tablet PO SCH (10:15)
[2020-09-18] MEDS ORDERED: ASPI-1071 PO (14:51)
[2020-09-18] MEDS ORDERED: ATOR20TA66 PO (14:51)
[2020-09-18] MEDS ORDERED: PANT40TA54 PO (15:32)
[2020-09-19] MEDS ORDERED: aspirin 81mg tablet.DR PO SCH (08:30)
== END 2020-09-18 16:25 | disposition home or self-care (01) ==
LOC: ER 00:29 → ED HOLD 03:58 → UNDOADMOB 03:58 → UNDODISOB 16:25
DX: I24.9 Acute ischemic heart disease, unspecified (principal); R07.89 Other chest pain; M19.90 Unspecified osteoarthritis, unspecified site; F17.200 Nicotine dependence, unspecified, uncomplicated; F12.90 Cannabis use, unspecified, uncomplicated; Z90.49 Acquired absence of other specified parts of digestive tract; Z90.89 Acquired absence of other organs; Z90.710 Acquired absence of both cervix and uterus; Z98.890 Other specified postprocedural states; Z72.89 Other problems related to lifestyle; Z88.0 Allergy status to penicillin; Z88.2 Allergy status to sulfonamides; Z88.5 Allergy status to narcotic agent; Z91.040 Latex allergy status; Z88.8 Allergy status to other drugs, medicaments and biological substances; Z79.899 Other long term (current) drug therapy
CPT/HCPCS: 36415; 71045; 78452; 80053; 80061; 83735; 83880; 84484; 85025; 87081; 93005; 93017; 93306; 99285; A9500; J2785; G0378

== ENCOUNTER 2023-07-02 09:02 | Emergency (ER) | payer MEDICARE, BC ==
[~2023-07-02] VITALS: Ht 172.7 cm; Wt 109.0 kg
[~2023-07-02 09:02] MED LIST changes: +ASPI-1071 PO; +ATOR20TA66 PO; -HYDR-3973 PO; -KEN0.1O TP; -ONDA-103 PO; +PANT40TA54 PO
[2023-07-02 09:08] VITALS: TEMP 97.9
[2023-07-02] MEDS ORDERED: normal saline 1000ml 1,000 ML IV ONE (09:50)
[2023-07-02] MEDS ORDERED: ketorolac trometh. 30mg/ml inj. IV ONE (09:50)
[2023-07-02] MEDS ORDERED: ondansetron/PF 4mg/2ml inj IV ONE (09:50)
[2023-07-02 10:43] LABS: LYMPHOCYTES # (AUTO) 2.5 X10'3 (1.1-4.8); MEAN CORPUSCULAR HEMOGLOBIN 30.5 PG (27.0-31.0); NEUTROPHILS # (AUTO) 4.2 X10'3 (1.8-7.7)
[2023-07-02 10:47] LABS: BASOPHILS % (AUTO) 0.6 % (0-1); EOSINOPHILS # (AUTO) 0.2 X10'3 (0-0.9); EOSINOPHILS % (AUTO) 2.2 % (0-6); HEMOGLOBIN 16.1 g/dl (12.0-16.0); MEAN CORPUSCULAR HGB CONC 33.5 g/dL (33.0-36.5); MEAN CORPUSCULAR VOLUME 90.9 FL (78-98); MEAN PLATELET VOLUME 11.9 FL (7.4-10.4); MONOCYTES # (AUTO) 0.8 X10'3 (0-0.9); MONOCYTES % (AUTO) 9.8 % (2-12); NEUTROPHILS % (AUTO) 55.4 % (42-75); PLATELET COUNT 237 X10'3 (140-440); RED BLOOD COUNT 5.28 X10'6 (4.20-5.60); RED CELL DISTRIBUTION WIDTH 14.6 % (11.5-14.5); WHITE BLOOD COUNT 7.7 X10'3 (4.5-11.0)
[2023-07-02 11:01] LABS: ALANINE AMINOTRANSFERASE 47 U/L (12-78); ALBUMIN 4.6 G/DL (3.4-5.0); ALBUMIN/GLOBULIN RATIO 1.3 (1.1-1.5); ALKALINE PHOSPHATASE 149 IU/L (46-116); ANION GAP 11 (8-16); ASPARTATE AMINO TRANSFERASE 31 U/L (10-37); BILIRUBIN,TOTAL 1.1 MG/DL (0.1-1.0); BLOOD UREA NITROGEN 17 MG/DL (7-18); BUN/CREATININE RATIO 22.1 (10.0-20.0); CALCIUM 9.8 MG/DL (8.5-10.1); CHLORIDE 102 MMOL/L (99-107); CREATININE 0.77 MG/DL (0.40-0.90); GLUCOSE 106 MG/DL (70-104); POTASSIUM 3.3 MMOL/L (3.5-5.1); SODIUM 138 MMOL/L (135-145); TOTAL CARBON DIOXIDE 25.1 MMOL/L (24-32); TOTAL PROTEIN 8.2 G/DL (6.4-8.2); eCRCL 87 ML/MIN; eGFR 79 ML/MIN
[2023-07-02 11:03] LABS: LARGE PLATELETS MODERATE; PLATELET ESTIMATE NORMAL
[2023-07-02 11:08] LABS: PRO BRAIN NATRIURETIC PEPTIDE 61 PG/ML (0-125)
[2023-07-02] MEDS ORDERED: ONDA4TAB12 PO (11:44)
[2023-07-02 12:01] VITALS: BP 126/75; PULSE 91; RESP 16; O2SAT 98
== END 2023-07-03 08:00 | disposition home or self-care (01) ==
LOC: ER 09:03
DX: R07.9 Chest pain, unspecified (principal); R11.0 Nausea; R06.02 Shortness of breath
CPT/HCPCS: 36415; 71045; 80053; 83880; 84484; 85008; 85025; 93005; 96361; 96374; 96375; 99285; J1885; J2405; J7030

== ENCOUNTER 2023-10-08 10:41 | Outpatient (CLI) | payer MEDICARE, BC ==
[~2023-10-08 10:41] MED LIST changes: +ONDA4TAB12 PO
== END 2023-10-08 23:59 | disposition home or self-care (01) ==
LOC: MRI 10:41
PROVIDERS: ATTEND Orthopaedic Surgery
DX: S83.232A Complex tear of medial meniscus, current injury, left knee, initial encounter (principal); S83.512A Sprain of anterior cruciate ligament of left knee, initial encounter; M25.452 Effusion, left hip; M25.562 Pain in left knee; R60.9 Edema, unspecified; X58.XXXA Exposure to other specified factors, initial encounter; Y93.89 Activity, other specified; Y92.89 Other specified places as the place of occurrence of the external cause; Y99.8 Other external cause status
CPT/HCPCS: 73721